=== PATIENT | female | born 1990 | race Caucasian/White ===

== ENCOUNTER 2024-01-06 20:08 | Emergency (ER) | payer OTHER, SELFPAY ==
[2024-01-06 20:14] VITALS: BP 114/90; PULSE 78; TEMP 36.7; O2SAT 98; BMI 33.1
--- NOTE | 2024-01-06 20:27 | ED_ITS ---
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 The patient states the headache started on the right side and is now on the left side. She has been using Tylenol and Motrin throughout the day without any relief. She has phonophobia, photophobia with nausea and 1 episode of vomiting. She denies any fever. This is a typical migraine for her. She denies any thunderclap presentation of the headache. She has no focal neurologic symptoms such as confusion, slurred speech, visual changes, weakness numbness or tingling. She denies any fever. She has no neck pain or stiffness. She denies any chest pain or shortness of breath. She denies the possibility of . Her mother brought her to the emergency department so she has a ride home. Related Data Allergies Allergy/AdvReac Type Severity Reaction Status Date / Time No Known Drug Allergies Allergy Verified 01/06/24 20:18 Opioid HPI Opioid Management Most Recent Opioid Data: Last Pain Scale 5 01/06/24 21:37 Review of Systems ROS Status of ROS 10 or more systems reviewed and unremark able except as noted in history and below Exam Narrative Exam Narrative: Vital signs and Nursing Notes reviewed: Patient is afebrile with a normal pulse, normal blood pressure, she is not hypoxic with pulse ox of 98% on room air General: Awake, alert, oriented, nontoxic but uncomfortable appearing female sitting in a dark room, no respiratory distress, 1 episode of emesis prior to me walking in the room HEENT: Normocephalic atraumatic, mucous membranes are moist and pink, eyes are clear, normal conjunctiva, vision is grossly intact, posterior pharynx is normal in appearance. Neck: Supple, no meningeal signs Chest: Lungs are clear to auscultation with good air entry, there is no wheezing rhonchi or rales appreciated no accessory muscle use, patient is speaking in complete sentences-no chest wall tenderness to palpation CVS: Regular rate and rhythm S1-S2, no murmurs rubs or gallops, pulses are brisk and equal bilaterally ABD: Soft, nondistended, nontender, no rebound guarding or rigidity, bowel sounds are normal, no pulsatile masses appreciated Extremities: Moving all extremities, no lower extremity tenderness or swelling noted, negative Homans' sign, pulses are brisk and equal bilaterally Skin: Normal in appearance without rash,pallor, petechiae or purpura Neuro: No focal deficits, speech is clear, upper and lower extremity strength and sensation is intact, negative pronator drift, no facial droop Constitutional Vital Signs, click to edit/add: Last Vital Signs Temp 98.1 F 01/06/24 20:14 Pulse 78 01/06/24 20:14 Resp 16 01/06/24 20:14 BP 114/90 01/06/24 20:14 Pulse Ox 98 01/06/24 20:14 O2 Del Method Room Air 01/06/24 20:14 Course Vital Signs Vital signs: Vital Signs Temperature 98.1 F 01/06/24 20:14 Pulse Rate 78 01/06/24 20:14 Respiratory Rate 16 01/06/24 20:14 Blood Pressure 114/90 01/06/24 20:14 Pulse Oximetry 98 01/06/24 20:14 Oxygen Delivery Method Room Air 01/06/24 20:14 Temperature 98.1 F 01/06/24 20:14 Pulse Rate 78 01/06/24 20:14 Respiratory Rate 16 01/06/24 20:14 Blood Pressure 114/90 01/06/24 20:14 Pulse Oximetry 98 01/06/24 20:14 Oxygen Delivery Method Room Air 01/06/24 20:14 Medical Decision Making MDM Narrative Medical decision making narrative: This 33-year-old female presents for evaluation of a migraine headache that has been present for the past 3 days. It started on the right side then moved to the left. She had a sharp stabbing throbbing sensation in the left parietal aspect of her scalp with photophobia, phonophobia, nausea and 1 episode of vomiting. She has not had a fever. She did not have a thunderclap presentation of the headache. She had been using ibuprofen today without relief. Her vital signs are stable. Physical exam is benign with the exception of an episode of vomiting. She does not appear to be feeling well but is not toxic or febrile. An IV was placed and she was medicated with IV fluids, Decadron, Phenergan IM and Toradol. She then was starting to feel better and requested a popsicle. On reevaluation she states the headache is starting to resolve. She declines need for anything else for pain at this time. She will be continually monitored until she is feeling well enough to be discharged home. During 1 reevaluation the patient was noted to be uncomfortable appearing again and was given 4 mg of IV morphine. Again on reevaluation she is much improved, she is able to text on her phone and requests to be discharged home. She will be discharged home with a prescription for Compazine to use as needed if she has ongoing nausea or migraine headaches. Discharge Plan Discharge Stand Alone Forms: Portal Instructions Chief Complaint: Headache Clinical Impression: Migraine Patient Disposition: Home, Self-Care Time of Disposition Decision: 22:49 Condition: Good Print Language: [place] Instructions: Migraine Headache (ED) Referrals: JONNIE CHILEL RE [Primary Care Provider] - 1 week
[2024-01-06] MEDS: KETOROLAC TROMETHAMINE 30 MG/ML VIAL IVP (20:52)
[2024-01-06] MEDS: 0.9 % SODIUM CHLORIDE 1,000 ML 1000 ML IV (20:52)
[2024-01-06] MEDS: DEXAMETHASONE SOD PHOS 10 MG/ML VIAL IV (20:52)
[2024-01-06] MEDS: PROMETHAZINE HCL 25 MG/ML VIAL 12.5 MG IM (20:52)
[2024-01-06] MEDS: MORPHINE SULFATE 4 MG/ML VIAL IV (22:15)
== END 2024-01-06 23:06 | disposition home or self-care (01) ==
PROVIDERS: Emergency Provider Emergency Medicine; PCP Family Medicine
DX: G43.909 Migraine, unspecified, not intractable, without status migrainosus (principal)
CPT/HCPCS: 96361; 96372; 96374; 96375; 99284; J1100; J1885; J2250; J2270